=== PATIENT | male | born 1990 | race Two or more races ===

== ENCOUNTER 2025-08-03 12:14 | Emergency (ER) | payer MEDICAID ==
[~2025-08-03] VITALS: Ht 188 cm; Wt 100.0 kg
[2025-08-03 12:17] VITALS: O2SAT 98
[2025-08-03] MEDS: OLANZAPINE 10 MG/VIAL IM ONE (14:14)
[2025-08-03] MEDS: BENZTROPINE MESYLATE 1 MG/ML 2ML VIAL IM ONE (14:14)
[2025-08-03] MEDS: LORAZEPAM 2MG/ML UD SYRINGE IM NR (14:14)
[2025-08-03 15:47] LABS: *AMPHETAMINES SCREEN URINE PRESUMPTIVE POSITIVE (NEGATIVE); *BARBITURATES SCREEN URINE NEGATIVE (NEGATIVE); *BENZODIAZEPINES SCREEN URINE NEGATIVE (NEGATIVE); *COCAINE SCREEN URINE NEGATIVE (NEGATIVE); CANNABINOID URINE SCREEN PRESUMPTIVE POSITIVE (NEGATIVE); ECSTASY MDMA SCREEN URINE CONF.TEST INDICATED (NEGATIVE); METHADONE URINE SCREEN NEGATIVE (NEGATIVE); OPIATES URINE SCREEN NEGATIVE (NEGATIVE); PHENCYCLIDINE URINE SCREEN NEGATIVE (NEGATIVE)
[2025-08-03 16:15] LABS: HEMATOCRIT. 37.2 % (42.0-52.0); HEMOGLOBIN. 12.3 g/dL (14.0-18.0); MEAN PLATELET VOLUME 8.2 fl (7.4-10.4); PLATELET 284 x1000/uL (130-400); RED BLOOD CELL COUNT 4.26 mill/uL (4.7-6.1); RED CELL DISTRIBUTION WIDTH 14.6 % (11.6-14.6)
[2025-08-03 16:30] LABS: CREATININE 1.2 mg/dL (0.6-1.3)
[2025-08-03 16:31] LABS: ETHANOL BLOOD < 10 mg/dL (<10); UREA NITROGEN BLOOD 8 mg/dL (9-23)
[2025-08-03 16:35] LABS: CLARITY URINE CLEAR (CLEAR); COLOR URINE DARK YELLOW (YELLOW); GLUCOSE URINE NEGATIVE (NEGATIVE); KETONES URINE 3+ (NEGATIVE); LEUKOCYTE ESTERASE URINE NEGATIVE (NEGATIVE); NITRITE URINE NEGATIVE (NEGATIVE); OCCULT BLOOD URINE NEGATIVE (NEGATIVE); PH URINE 6.0 (4.5-8.0); PROTEIN URINE 2+ (NEGATIVE); SPECIFIC GRAVITY URINE 1.042 (1.005-1.030); UROBILINOGEN URINE 1.0 E.U./dL (0.2-1.0)
[2025-08-03 17:24] LABS: BACTERIA URINE 2+; RBC URINE NONE SEEN /hpf (0-2); SQUAMOUS EPITHELIAL CELL URINE FEW /lpf (RARE/1+); WBC URINE 0-2 /hpf (0-2)
[2025-08-03 17:25] LABS: MUCUS URINE 1+ /lpf (NONE/TRACE)
[2025-08-03 17:39] LABS: EOSINOPHILS % MANUAL 1.0 % (0.0-5.0); LYMPHOCYTES % MANUAL 11.0 % (20.0-50.0); MONOCYTES % MANUAL 14.0 % (2.0-8.0); NEUTROPHILS % MANUAL 74.0 % (45.0-75.0); PLATELET ESTIMATE NORMAL
[2025-08-03] MEDS: DOXYCYCLINE HYCLATE 100MG CAPSULE PO SCH ×2 (18:00→21:50)
[2025-08-03] MEDS ORDERED: CEFTRIAXONE SODIUM 1G VIAL IM SCH (18:00)
[2025-08-03] MEDS: LIDOCAINE HCL 1% 20ML VIAL INFIL SCH (18:36)
[2025-08-03] MEDS: CEFTRIAXONE SODIUM 1G VIAL IM SCH (18:36)
[2025-08-04 13:01] VITALS: BP 104/50; PULSE 78; RESP 18; TEMP 37; O2SAT 100
== END 2025-08-04 13:20 ==
LOC: ER 12:14
DX: R45.851 Suicidal ideations (principal); T50.902A Poisoning by unspecified drugs, medicaments and biological substances, intentional self-harm, initial encounter; F20.9 Schizophrenia, unspecified; F31.9 Bipolar disorder, unspecified; Z79.899 Other long term (current) drug therapy; Z88.6 Allergy status to analgesic agent; Y92.89 Other specified places as the place of occurrence of the external cause
CPT/HCPCS: 80305; 80048; 81003; 80307; 80329; 80320; 85025; 36415; 96372; 99285; 87426 ×2; J0515; J3490; J0696; J2003; J2060; G0480